=== PATIENT | male | born 1980 | race African-American/Black ===

== ENCOUNTER → 2018-02-15 11:12 | Emergency (ER) | payer OTHER ==
[~2018-02-15 11:12] MED LIST: Ketorolac INJ* 30 MG/ML 1 ML VIAL IV PUSH ONE
[2018-02-15 13:12] LABS: ABS Basophils 0.1 10^3/ul (0-0.2); ABS Eosinophils 0.2 10^3/ul (0-0.6); ABS Lymphocytes 2.3 10^3/ul (1.0-4.8); ABS Monocytes 0.8 10^3/ul (0-0.8); ABS Neutrophils 4.5 10^3/ul (1.5-7.7); ABS Nucleated RBC 0 10^3/ul; Eosinophil % 2.8 % (0-6); Hematocrit 42 % (42-52); Hemoglobin 13.7 g/dl (14.0-18.0); Lymphocyte % 29.9 % (25-47); Mean Corpuscular HGB Conc 33 g/dl (31-36); Mean Corpuscular Hemoglobin 25 pg (27-31); Mean Corpuscular Volume 75 fL (80-94); Mean Platelet Volume 7.9 um3 (7.4-10.4); Nucleated Red Blood Cells % 0.1; Platelet Count 258 10^3/ul (150-450); Red Blood Count 5.59 10^6/ul (4.0-5.4); Red Cell Distribution Width 16 % (10.5-15); White Blood Count 7.9 10^3/ul (3.5-10.8)
[2018-02-15 13:25] LABS: EGFR Non-African American 72.4 (>60)
--- NOTE | 2018-02-15 13:26 | RAD ---
HISTORY: Chest pain COMPARISONS: None VIEWS: 1: frontal portable view of the chest at 1:05 PM FINDINGS: LINES AND TUBES: None. CARDIOMEDIASTINAL SILHOUETTE: The cardiomediastinal silhouette is normal for portable technique. PLEURA: The costophrenic angles are sharp. No pleural abnormalities are noted. LUNG PARENCHYMA: The lungs are clear. ABDOMEN: The upper abdomen is clear. There is no subphrenic gas. BONES AND SOFT TISSUES: No bone or soft tissue abnormalities are noted. IMPRESSION: NO ACTIVE CARDIOPULMONARY DISEASE.
[2018-02-15 15:32] VITALS: BP 153/94
--- NOTE | 2018-02-15 17:27 | ED ---
Annette Bui Tenzin, scribed for Jonathan Bhagat MD on 02/15/18 at 1215 . HPI Chest Pain - HPI Summary HPI Summary: Pt is a 37 years old male with complaining of chest pain that has been constant for the past four days. He describes the pain as squeezing and sharp. He notes that nothing aggravates the chest pain. He also complains of intermittent nausea and cough. He denies SOB and diaphoresis. - History of Current Complaint Chief Complaint: EDChestPainROMI Time Seen by Provider: 02/15/18 11:47 Hx Obtained From: Patient Onset/Duration: Started Days Ago - four days ago. Timing: Constant Initial Severity: Moderate Current Severity: Moderate Pain Intensity: 10 Pain Scale Used: 0-10 Numeric Character: Pressure/Squeezing, Sharp/Stabbing Aggravating Factor(s): Nothing Alleviating Factor(s): Nothing Associated Signs and Symptoms: Positive: Chest Pain, Nausea, Cough. Negative: Shortness of Breath, Diaphoresis - Allergy/Home Medications Allergies/Adverse Reactions: Allergies Allergy/AdvReac Type Severity Reaction Status Date / Time Penicillins Allergy Unknown Verified 02/15/18 11:15 Reaction Details Home Medications: Home Medications Albuterol HFA INHALER* [Ventolin HFA Inhaler*] 2 puff INH Q6H PRN 02/15/18 [ History Confirmed 02/15/18] PMH/Surg Hx/FS Hx/Imm Hx Endocrine/Hematology History: Denies: Hx Anticoagulant Therapy Cardiovascular History: Denies: Hx Pacemaker/ICD Respiratory History: Reports: Hx Asthma History: Reports: Other Problems/Disorders - r/t balanoposthitis Musculoskeletal History: Reports: Other Musculoskeletal History - balanposthitis - scheduled to see Dr. Avina re: circumcision Sensory History: Denies: Hx Hearing Aid Neurological History: Reports: Other Neuro Impairments/Disorders - recent blackouts/referral to [facility] for visit Psychiatric History: Reports: Hx Anxiety, Hx Attention Deficit Hyperactivity Disorder Denies: Hx Panic Disorder Infectious Disease History: No Infectious Disease History: Denies: Traveled Outside the [place] in Last 30 Days - Family History Known Family History: Positive: Hypertension, Diabetes, Other - CVA - Social History Alcohol Use: Occasionally Substance Use Type: Reports: None Smoking Status (MU): Smoker, Current Status Unknown Review of Systems Negative: Skin Diaphoresis Positive: Chest Pain Positive: Cough. Negative: Shortness Of Breath Positive: Nausea - Intermittent All Other Systems Reviewed And Are Negative: Yes Physical Exam - Summary Physical Exam Summary: Appearance: The patient is well-nourished in no acute distress and in no acute pain. Skin: The skin is warm and dry and skin color reflects adequate perfusion. HEENT: The head is normocephalic and atraumatic. The pupils are equal and reactive. The conjunctivae are clear and without drainage. Nares are patent and without drainage. Mouth reveals moist mucous membranes and the throat is without erythema and exudate. The external ears are intact. The ear canals are patent and without drainage. The tympanic membranes are intact. Neck: the neck is supple with full range of motion and non-tender. There are no carotid bruits. There is no neck vein distension. Respiratory: He has tenderness on the xiphoid process of the epigastrium. Lungs are clear to auscultation and breath sounds are symmetrical and equal. Cardiovascular: Heart is regular rate and rhythm. There is no murmur or rub auscultated. There is no peripheral edema and pulses are symmetrical and equal. Abdomen: The abdomen is soft and non-tender. There are normal bowel sounds heard in all four quadrants and there is no organomegaly palpated. Musculoskeletal: He has tenderness on the xiphoid process of the epigastrium. There is no back tenderness noted. Extremities are non-tender with full range of motion. There is good capillary refill. There is no peripheral edema or calf tenderness elicited. Neurological: Patient is alert and oriented to person, place and time. The patient has symmetrical motor strength in all four extremities. Cranial nerves are grossly intact. Deep tendon reflexes are symmetrical and equal in all four extremities. Psychiatric: The patient has an appropriate affect and does not exhibit any anxiety or depression. Triage Information Reviewed: Yes Vital Signs On Initial Exam: Initial Vitals Temp Pulse Resp BP Pulse Ox 99.1 F 89 16 152/100 99 02/15/18 11:15 02/15/18 11:15 02/15/18 11:15 02/15/18 11:15 02/15/18 11:15 Vital Signs Reviewed: Yes Diagnostics - Vital Signs Vital Signs Temp Pulse Resp BP Pulse Ox 02/15/18 11:15 99.1 F 89 16 152/100 99 - Laboratory Lab Results: Lab Results 02/15/18 02/15/18 02/15/18 Range/Units 12:50 12:50 12:50 WBC 7.9 (3.5-10.8) 10^3/ul RBC 5.59 H (4.0-5.4) 10^6/ul Hgb 13.7 L (14.0-18.0) g/dl Hct 42 (42-52) % MCV 75 L (80-94) fL MCH 25 L (27-31) pg MCHC 33 (31-36) g/dl RDW 16 H (10.5-15) % Plt Count 258 (150-450) 10^3/ul MPV 7.9 (7.4-10.4) um3 Neut % (Auto) 56.6 (38-83) % Lymph % (Auto) 29.9 (25-47) % Jack % (Auto) 9.8 H (0-7) % Eos % (Auto) 2.8 (0-6) % Baso % (Auto) 0.9 (0-2) % Absolute Neuts (auto) 4.5 (1.5-7.7) 10^3/ul Absolute Lymphs (auto) 2.3 (1.0-4.8) 10^3/ul Absolute Monos (auto) 0.8 (0-0.8) 10^3/ul Absolute Eos (auto) 0.2 (0-0.6) 10^3/ul Absolute Basos (auto) 0.1 (0-0.2) 10^3/ul Absolute Nucleated RBC 0 10^3/ul Nucleated RBC % 0.1 Sodium 137 L (139-145) mmol/L Potassium 4.0 (3.5-5.0) mmol/L Chloride 102 (101-111) mmol/L Carbon Dioxide 28 (22-32) mmol/L Anion Gap 7 (2-11) mmol/L BUN 12 (6-24) mg/dL Creatinine 1.15 (0.67-1.17) mg/dL Est GFR ( Amer) 93.1 (>60) Est GFR (Non-Af Amer) 72.4 (>60) BUN/Creatinine Ratio 10.4 (8-20) Glucose 88 (70-100) mg/dL Lactic Acid 0.6 (0.5-2.0) mmol/L Calcium 9.2 (8.6-10.3) mg/dL Total Bilirubin 0.80 (0.2-1.0) mg/dL AST 24 (13-39) U/L ALT 25 (7-52) U/L Alkaline Phosphatase 56 (34-104) U/L Total Creatine Kinase 301 H (10-223) U/L Troponin I 0.00 (<0.04) ng/mL Total Protein 7.0 (6.4-8.9) g/dL Albumin 4.2 (3.2-5.2) g/dL Globulin 2.8 (2-4) g/dL Albumin/Globulin Ratio 1.5 (1-3) Result Diagrams: 02/15/18 12:50 02/15/18 12:50 Lab Statement: Any lab studies that have been ordered have been reviewed, and results considered in the medical decision making process. - Radiology CXR Xray Interpretation: No Acute Changes - Impression: No active cardiopulmonary disease. Dr. Bhagat reviewed the report. Radiology Interpretation Completed By: Radiologist - EKG 11:16 Cardiac Rate: NL EKG Rhythm: Sinus Rhythm - at 83 BPM EKG Interpretation: Probable early repolarization. EKG Comparison: No Significant Change - from EKG on 02/05/18, 00:09 Chest Pain Course/Dx - Course Course Of Treatment: Mr. Trejo has has unrelenting anterior chest pain for 4 days that seems to be exacerbatied by movemnet and touch. His labs are WNL and he improved some with ketorolac. - Diagnoses Provider Diagnoses: Chest pain Discharge - Sign-Out/Discharge Documenting (check all that apply): Discharge/Admit/Transfer - Discharge Plan Condition: Stable Disposition: HOME Patient Education Materials: Ibuprofen (By mouth), Chest Pain (ED) Referrals: Carmelo Reyes DO [Primary Care Provider] - 3 Days Additional Instructions: Follow up with your primary care physician in three days. I recommend ibuprofen for the pain. Return to the emergency department for any new or worsening symptoms. - Billing Disposition and Condition Condition: STABLE Disposition: HOME The documentation as recorded by the Annette salgado Tenzin accurately reflects the service I personally performed and the decisions made by , Jonathan Bhagat MD.
== END | disposition home or self-care (01) ==
LOC: ED 11:12
DX: R07.89 Other chest pain (principal); R11.0 Nausea; R05 Cough; J45.909 Unspecified asthma, uncomplicated; N47.6 Balanoposthitis; F90.9 Attention-deficit hyperactivity disorder, unspecified type; F41.9 Anxiety disorder, unspecified; Z88.0 Allergy status to penicillin; Z72.0 Tobacco use
CPT/HCPCS: 36415; 71045; 80053; 82550; 83605; 84484; 85025; 93005; 96374; 99282; J1885

== ENCOUNTER 2024-01-17 11:13 | Observation (INO) ==
[2024-01-17] MEDS: Iodixanol (CONTRAST) 320 MG/ML 100 ML SDV IV ONE (11:40)
[2024-01-17 11:48] LABS: Activated Partial Thrombo Time 26.1 seconds (26.0-38.0); INR 0.9 (0.83-1.13)
[2024-01-17 11:50] LABS: ABS Basophils 0.1 10^3/uL (0.0-0.1); ABS Eosinophils 0.1 10^3/uL (0.0-0.5); ABS Lymphocytes 2.2 10^3/uL (1.0-4.8); ABS Monocytes 0.5 10^3/uL (0.0-1.1); ABS Neutrophils 2.2 10^3/uL (1.5-7.6); ABS Nucleated RBC 0.01 10^3/ul; Eosinophil % 1.6 %; Hematocrit 45.3 % (38-53); Hemoglobin 14.7 g/dL (13.2-16.3); Lymphocyte % 43.9 %; Mean Corpuscular Hemoglobin 25.9 pg (27-33); Mean Corpuscular Hgb Conc 32.5 g/dL (31-36); Mean Corpuscular Volume 79.9 fL (80-97); Mean Platelet Volume 8.1 fL (7.5-11.2); Nucleated Red Blood Cells % 0.3 %/100WBC (0.0-0.8); Platelet Count 273 10^3/uL (150-450); Red Blood Count 5.67 10^6/uL (4.06-5.63); Red Cell Distribution Width 16.7 % (12-17); White Blood Count 4.9 10^3/uL (3.6-10.2)
[2024-01-17] MEDS: Aspirin EC 325 mg TAB.EC PO ONE (12:06)
[2024-01-17 12:16] LABS: ALT 28 U/L (7-52); Albumin 4.5 g/dL (3.2-5.2); Albumin/Globulin Ratio 1.8 (1-3); Alkaline Phosphatase 65 U/L (35-149); Anion Gap 13 mmol/L (2-16); Blood Urea Nitrogen 11 mg/dL (6-24); CO2 Carbon Dioxide 24 mmol/L (22-32); Calcium 9.4 mg/dL (8.6-10.3); Chloride 104 mmol/L (101-111); Cholesterol 192 mg/dL; Creatinine, Serum 1.13 mg/dL (0.67-1.17); Globulin 2.5 g/dL (2-4); Glucose 95 mg/dL (70-100); HDL Cholesterol 93.8 mg/dL; LDL Cholesterol 78 mg/dL; Sodium 141 mmol/L (135-145); Triglycerides 103 mg/dL; eGFR CKD-EPI 83.7 (>60)
[2024-01-17] MEDS ORDERED: Albuterol HFA INHALER 8 gm MDI INH PRN (13:36)
[2024-01-17 14:03] LABS: Urine Appearance Clear; Urine Bilirubin Negative (Negative); Urine Blood Negative (Negative); Urine Color Light-Yellow; Urine Glucose Negative (Negative); Urine Ketones Negative (Negative); Urine Nitrite Negative (Negative); Urine Protein 1+ (>=30 mg/dL) (Negative); Urine Specific Gravity 1.045 (1.002-1.030); Urine Urobilinogen Negative (Negative)
[2024-01-17 14:07] LABS: Urine Bacteria Absent /HPF (Absent); Urine Red Blood Cell Trace(0-2/hpf) /HPF (0-Trace); Urine Squamous Epithelial Cell Present /HPF (Absent); Urine White Blood Cell Trace(0-5/hpf) /HPF (0-Trace)
[2024-01-17 14:30] LABS: Urine Benzodiazepine Screen None Detected (None Detect); Urine Cannabinoids Screen Presumptive Positive (None Detect); Urine Opiates Screen None Detected (None Detect)
[2024-01-17 14:39] LABS: Direct Bilirubin Redraw 0.2 mg/dL (0.1-0.5)
[2024-01-17] MEDS: Enoxaparin 40 MG/0.4 ML SYR SUBCUT SCH (15:39)
[2024-01-17 18:30] LABS: C Reactive Protein 1.02 mg/L (<8.01)
[2024-01-17 22:03] LABS: Erythrocyte Sed Rate 2 mm/Hr (0-14)
[2024-01-17 23:26] LABS: HIV 4th Generation Nonreactive (Nonreactive)
[2024-01-18] MEDS ORDERED: PTO: Albuterol HFA INHALER 8 gm MDI INH PRN (02:24)
[2024-01-18 10:11] VITALS: BP 160/98
[2024-01-18] MEDS: COVID VAC 23-24(12+)(Moderna) SYR 0.5 ML IM ONE (11:24)
[2024-01-19 15:48] LABS: Protein C Activity 112 % (70 - 150)
[2024-01-19 16:02] LABS: Protein S Activity, P >150 % (65-150)
== END 2024-01-18 12:20 | disposition home or self-care (01) ==
LOC: ED 11:13 → EDHOLD 11:13 → MEDTELE 23:40
PROVIDERS: ADMIT Internal Medicine; ATTEND Internal Medicine